=== PATIENT | male | born 1950 | race Caucasian/White ===

== ENCOUNTER 2017-01-29 16:03 | Emergency (ER) | payer OTHER ==
[2017-01-29 17:11] LABS: Hematocrit 43 % (42-52); Hemoglobin 14.1 g/dl (14.0-18.0); Mean Corpuscular HGB Conc 33 g/dl (31-36); Mean Corpuscular Hemoglobin 29 pg (27-31); Mean Corpuscular Volume 89 fL (80-94); Mean Platelet Volume 10 um3 (7.4-10.4); Red Blood Count 4.85 10^6/ul (4.0-5.4); Red Cell Distribution Width 16 % (10.5-15); White Blood Count 9.5 10^3/ul (3.5-10.8)
--- NOTE | 2017-01-29 17:18 | RAD ---
INDICATION: Chest pain COMPARISON: May 23, 2015 TECHNIQUE: An AP portable view obtained at 1700 hours is submitted. FINDINGS: Bones/Soft Tissues: There are no acute bony findings. There are chronic left rib deformities with pleural reactive change Cardiomediastinal: The cardiomediastinal silhouette is normal. Lungs: There are no acute infiltrates. Pleura: There are no pleural effusions. Other: None IMPRESSION: CHRONIC ABNORMALITIES LEFT HEMITHORAX. NO ACUTE FINDINGS.
[2017-01-29 17:25] LABS: Albumin 4.1 g/dL (3.2-5.2); BUN/Creatinine Ratio 10.3 (8-20); Calcium 8.9 mg/dL (8.6-10.3); EGFR African American 99.9 (>60); EGFR Non-African American 77.7 (>60); Globulin 3.1 g/dL (2-4); Potassium 3.6 mmol/L (3.5-5.0); Total Bilirubin 0.6 mg/dL (0.2-1.0); Total Protein 7.2 g/dL (6.4-8.9)
[2017-01-29 17:26] LABS: Troponin I 0.02 ng/mL (<0.04)
[2017-01-29 18:05] VITALS: BP 165/97
--- NOTE | 2017-02-01 12:55 | ED ---
I, Oh,Somedardo, scribed for Abdifatah Mao MD on 01/29/17 at 1701 . HPI Chest Pain - HPI Summary HPI Summary: This 66 y/o male presents to ED for intermittent, 3-day old left anterior chest tightness. Each episode last about "a couple of minutes". CP is worse since yesterday, and pt decided to visit ED when [facility]. Positive for elevated blood pressure, which is controlled with triamterene/ Hctz. 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 PMHx includes CAD s/p stent placement. [facility] - History of Current Complaint Chief Complaint: EDChestPainROMI Time Seen by Provider: 01/29/17 16:21 Hx Obtained From: Patient, Medical Records Onset/Duration: Started Days Ago, Atraumatic, Still Present Timing: Intermittent Pain Scale Used: 0-10 Numeric Chest Pain Location: Left Anterior Chest Pain Radiates: No Character: Sharp/Stabbing, Tightness Aggravating Factor(s): Nothing Alleviating Factor(s): NTG 123 Associated Signs and Symptoms: Positive: Chest Pain - Allergy/Home Medications Allergies/Adverse Reactions: Allergies Allergy/AdvReac Type Severity Reaction Status Date / Time No Known Allergies Allergy Verified 12/30/15 09:11 PMH/Surg Hx/FS Hx/Imm Hx Endocrine/Hematology History: Reports: Hx Diabetes Cardiovascular History: Reports: Hx Coronary Artery Disease, Hx Hypertension Psychiatric History: Reports: Hx Schizophrenia - Surgical History Surgery Procedure, Year, and Place: 2 cardiac stents, appy Infectious Disease History: No Infectious Disease History: Denies: Traveled Outside the [place] in Last 30 Days - Family History Known Family History: Negative: Cardiac Disease - Social History Alcohol Use: None Hx Substance Use: Yes Substance Use Type: Reports: Marijuana Substance Use Comment - Amount & Last Used: daily Hx Tobacco Use: No Smoking Status (MU): Never Smoked Tobacco Review of Systems Negative: Fever Positive: Chest Pain All Other Systems Reviewed And Are Negative: Yes Physical Exam Vital Signs On Initial Exam: Initial Vitals Temp Pulse Resp BP Pulse Ox 98.7 F 59 17 153/95 97 01/29/17 16:06 01/29/17 16:06 01/29/17 16:06 01/29/17 16:06 01/29/17 16:06 Diagnostics - Vital Signs Vital Signs Temp Pulse Resp BP Pulse Ox 01/29/17 16:06 98.7 F 59 17 153/95 97 - Laboratory Lab Results: Lab Results 01/29/17 01/29/17 01/29/17 Range/Units 16:40 16:40 16:40 WBC 9.5 (3.5-10.8) 10^3/ul RBC 4.85 (4.0-5.4) 10^6/ul Hgb 14.1 (14.0-18.0) g/dl Hct 43 (42-52) % MCV 89 (80-94) fL MCH 29 (27-31) pg MCHC 33 (31-36) g/dl RDW 16 H (10.5-15) % Plt Count 263 (150-450) 10^3/ul MPV 10 (7.4-10.4) um3 Neut % (Auto) 54.4 (38-83) % Lymph % (Auto) 31.3 (25-47) % [place] % (Auto) 10.2 H (1-9) % Eos % (Auto) 1.8 (0-6) % Baso % (Auto) 2.3 H (0-2) % Absolute Neuts (auto) 5.2 (1.5-7.7) 10^3/ul Absolute Lymphs (auto) 3.0 (1.0-4.8) 10^3/ul Absolute Monos (auto) 1.0 H (0-0.8) 10^3/ul Absolute Eos (auto) 0.2 (0-0.6) 10^3/ul Absolute Basos (auto) 0.2 (0-0.2) 10^3/ul Absolute Nucleated RBC 0.01 10^3/ul Nucleated RBC % 0.1 Sodium 138 (133-145) mmol/L Potassium 3.6 (3.5-5.0) mmol/L Chloride 105 (101-111) mmol/L Carbon Dioxide 25 (22-32) mmol/L Anion Gap 8 (2-11) mmol/L BUN 10 (6-24) mg/dL Creatinine 0.97 (0.67-1.17) mg/dL Est GFR ( Amer) 99.9 (>60) Est GFR (Non-Af Amer) 77.7 (>60) BUN/Creatinine Ratio 10.3 (8-20) Glucose 87 (70-100) mg/dL Lactic Acid 1.3 (0.5-2.0) mmol/L Calcium 8.9 (8.6-10.3) mg/dL Total Bilirubin 0.60 (0.2-1.0) mg/dL AST 24 (13-39) U/L ALT 31 (7-52) U/L Alkaline Phosphatase 58 (34-104) U/L Troponin I 0.02 (<0.04) ng/mL Total Protein 7.2 (6.4-8.9) g/dL Albumin 4.1 (3.2-5.2) g/dL Globulin 3.1 (2-4) g/dL Albumin/Globulin Ratio 1.3 (1-3) Result Diagrams: 01/29/17 16:40 01/29/17 16:40 Lab Statement: Any lab studies that have been ordered have been reviewed, and results considered in the medical decision making process. - EKG 1614 Cardiac Rate: Bradycardia EKG Rhythm: Sinus Bradycardia Ectopy: PVCs EKG Interpretation: Anteiror infarct, and PVCs. Unchanged from 07/06/2015 Chest Pain Course/Dx - Course Course Of Treatment: Mr. Samuels has known CAD and has been having multiple episodes of CP that respond to NTG. The hospitalists are admitting him to the hospital. - Diagnoses Provider Diagnoses: Unstable angina - Provider Notifications Discussed Care Of Patient With: Paty Alberto Time Discussed With Above Provider: 17:00 Instructed by Provider To: Admit As Inpatient Discharge - Discharge Plan Condition: Fair Disposition: AGAINST MEDICAL ADVICE Prescriptions: amLODIPine TAB* [Norvasc 5 mg TAB*] 5 mg PO DAILY #30 tab Referrals: Kaela Coffey [Primary Care Provider] - The documentation as recorded by the Daryn mejia Soohyun accurately reflects the service I personally performed and the decisions made by me, Abdifatah Mao MD.
== END 2017-01-29 18:07 | disposition left against medical advice (07) ==
LOC: ED 16:03
DX: I20.0 Unstable angina (principal); R07.9 Chest pain, unspecified
CPT/HCPCS: 36415; 71010; 80053; 83605; 84484; 85025; 93005; 99283

== ENCOUNTER 2017-04-02 16:39 | Emergency (ER) | payer OTHER ==
[2017-04-02 17:06] VITALS: BP 138/86
--- NOTE | 2017-04-02 17:40 | UC ---
Skin Complaint HPI - HPI Summary HPI Summary: 66 yo male was stung on right side of neck yesterday stung by a flying insect initially quite painful slightly itchy - History of Current Complaint Chief Complaint: UCSkin Time Seen by Provider: 04/02/17 17:19 Stated Complaint: BUG BITE Hx Obtained From: Patient Onset/Duration: Sudden Onset Skin Exposure Onset/Duration: Hours Ago Timing: Constant Onset Severity: Moderate Current Severity: Mild Pain Intensity: 2 Location: Other - right neck Character: Pruritus, Redness, Painful Aggravating Factor(s): Touch Alleviating Factor(s): Cold Associated Signs & Symptoms: Positive: Rash, Tenderness Related History: Insect Bite/Sting - Allergy/Home Medications Allergies/Adverse Reactions: Allergies Allergy/AdvReac Type Severity Reaction Status Date / Time No Known Allergies Allergy Verified 12/30/15 09:11 Home Medications: Home Medications Metformin ER (NF) 500 mg PO DAILY 04/02/17 [History Confirmed 04/02/17] Metoprolol & Hydrochlorothiazi [Metoprolol Succinate ER/H 25-12.5 mg] 1 tab PO DAILY 04/02/17 [History Confirmed 04/02/17] Review of Systems Constitutional: Negative Skin: Rash Eyes: Negative ENT: Negative Respiratory: Negative Cardiovascular: Negative Gastrointestinal: Negative Genitourinary: Negative Motor: Negative Neurovascular: Negative Musculoskeletal: Negative Neurological: Negative Psychological: Negative Is Patient Immunocompromised?: No All Other Systems Reviewed And Are Negative: Yes PMH/Surg Hx/FS Hx/Imm Hx Previously Healthy: Yes Endocrine History: Diabetes Cardiovascular History: Cardiac Disease, Hypertension - Surgical History Surgical History: Yes Surgery Procedure, Year, and Place: 2 cardiac stents, appy, spleen removed. - Family History Known Family History: Positive: Hypertension Negative: Cardiac Disease - Social History Alcohol Use: None Substance Use Type: Marijuana Substance Use Comment - Amount & Last Used: daily Smoking Status (MU): Never Smoked Tobacco - Immunization History Most Recent Influenza Vaccination: this season Most Recent Tetanus Shot: - Most Recent Pneumonia Vaccination: within 10 years Physical Exam Triage Information Reviewed: Yes Appearance: Well-Appearing Vital Signs: Initial Vital Signs Temp 97.5 F 04/02/17 16:59 Pulse 69 04/02/17 16:59 Resp 18 04/02/17 16:59 BP 138/86 04/02/17 16:59 Pulse Ox 98 04/02/17 16:59 Eyes: Positive: Conjunctiva Clear Neck: Positive: Supple, Nontender, No Lymphadenopathy Respiratory: Positive: Lungs clear, Normal breath sounds, No respiratory distress Cardiovascular: Positive: RRR, No Murmur Musculoskeletal: Positive: ROM Intact Neurological: Positive: Alert Psychological Exam: Normal Skin Exam: Other - sting site noted/no stinger/surrounding erthyema and redness Course/Dx - Diagnoses Provider Diagnoses: local reaction to insect sting Discharge - Discharge Plan Condition: Stable Disposition: HOME Patient Education Materials: Insect Bite or Sting (ED) Referrals: Kaela Coffey [Primary Care Provider] - Additional Instructions: cool compresses you can use your steroid cream
== END 2017-04-02 17:54 | disposition home or self-care (01) ==
LOC: UCEAST 16:39
DX: T63.481A Toxic effect of venom of other arthropod, accidental (unintentional), initial encounter (principal); Y92.9 Unspecified place or not applicable; F12.90 Cannabis use, unspecified, uncomplicated
CPT/HCPCS: 99211; G0463

== ENCOUNTER 2017-09-11 17:14 | Emergency (ER) | payer OTHER ==
[2017-09-11 17:25] VITALS: BP 139/87
--- NOTE | 2017-09-11 17:34 | UC ---
Minor Trauma HPI - HPI Summary HPI Summary: 66-year-old male presents with left rib pain after fall today. He states he slipped on ice and landed on his left side. He admits that immediately after he had left ankle knee and hip pain but that has since resolved. He states only pain that is left is left rib pain. He is able to ambulate without difficulty. He states the pain is worse when he takes a deep breath. He denies any abdominal pain or flank pain. He denies any hematuria. He hasnt taken anything for his pain. He states the pain is worse when he tries to move his left arm. He states the fall mechanical fall. he denies any previous chest pain or shortness of breath prior to the fall. He denies any head injury or LOC. He denies any neck pain or back pain. - History of Current Complaint Chief Complaint: UCGeneralIllness Stated Complaint: RIB INJURY Time Seen by Provider: 09/11/17 17:27 Pain Intensity: 7 - Allergies/Home Medications Allergies/Adverse Reactions: Allergies Allergy/AdvReac Type Severity Reaction Status Date / Time No Known Allergies Allergy Verified 09/11/17 17:25 Home Medications: Home Medications Pravastatin Sodium 40 mg PO DAILY 09/11/17 [History Confirmed 09/11/17] PMH/Surg Hx/FS Hx/Imm Hx Endocrine History: Other Other Endocrine History: no DM Cardiovascular History: Hypertension - Surgical History Surgical History: Yes Surgery Procedure, Year, and Place: 2 cardiac stents, appy, spleen removed. - Family History Known Family History: Positive: Hypertension Negative: Cardiac Disease - Social History Alcohol Use: None Substance Use Type: Marijuana Substance Use Comment - Amount & Last Used: daily Smoking Status (MU): Never Smoked Tobacco - Immunization History Most Recent Influenza Vaccination: this season Most Recent Tetanus Shot: - Most Recent Pneumonia Vaccination: within 10 years Review of Systems Constitutional: Negative Respiratory: Shortness Of Breath, Other - left rib pain Gastrointestinal: Negative All Other Systems Reviewed And Are Negative: Yes Physical Exam Triage Information Reviewed: Yes Appearance: Well-Appearing Vital Signs: Initial Vital Signs Temp 98.0 F 09/11/17 17:20 Pulse 60 09/11/17 17:20 Resp 18 09/11/17 17:20 BP 139/87 09/11/17 17:20 Pulse Ox 100 09/11/17 17:20 Vital Signs Reviewed: Yes Eyes: Positive: Conjunctiva Clear Respiratory: Positive: Other: - tenderness over ribs 5-8 on lateral left side with no ecchymosis or step off Cardiovascular: Positive: RRR Abdomen Description: Positive: Nontender, Soft. Negative: CVA Tenderness (L) Bowel Sounds: Positive: Present Musculoskeletal: Positive: Strength Intact - left hip, knee and ankle, Other: - good pulses Neurological Exam: Normal Psychological Exam: Normal Skin Exam: Normal Diagnostics - Radiology ribs Xray Interpretation: Positive (See Comments) - IMPRESSION: 1. MULTIPLE OLD LEFT RIB FRACTURES. 2. SLIGHTLY DISPLACED FRACTURE OF THE LEFT LATERAL SEVENTH RIB, AGE INDETERMINATE. Radiology Interpretation Completed By: Radiologist Minor Trauma Course/Dx - Course Course Of Treatment: 66-year-old male presents with left rib pain after fall today. He states he slipped on ice and landed on his left side. He admits that immediately after he had left ankle knee and hip pain but that has since resolved. He states only pain that is left is left rib pain. He is able to ambulate without difficulty. He states the pain is worse when he takes a deep breath. He denies any abdominal pain or flank pain. He denies any hematuria. He hasnt taken anything for his pain. He states the pain is worse when he tries to move his left arm. He states the fall mechanical fall. he denies any previous chest pain or shortness of breath prior to the fall. He denies any head injury or LOC. He denies any neck pain or back pain. On exam tenderness over ribs 5-8 on lateral left side. No step-off. Lungs clear to auscultation. Full range of motion and strength in lower extremity. Nontender abdomen. X- ray shows rib fracture age interdeterminate at 8 which is were pain. patient has tried tyenlol and ibuprofen without relief so will send script for percocet. will have follow up with primary about blood pressure as has diagnosis of HTN. medications reviewed. patient understand and agrees with plan. - Differential Dx/Diagnosis Differential Diagnosis/HQI/PQRI: Contusion(s), Fracture, Strain Provider Diagnoses: rib fracture, fall Discharge - Discharge Plan Condition: Good Disposition: HOME Prescriptions: oxyCODONE/Acetamin 5/325 MG* [Percocet 5/325 TAB*] 1 tab PO Q6H PRN #16 tab MDD 4 PRN Reason: Pain Patient Education Materials: Rib Fracture (ED) Referrals: Kaela Coffey [Primary Care Provider] - Additional Instructions: Take deep breath throughout the day Take Tylenol for pain every 6 hours, use narcotic for break through pain Place ice on area Follow up with primary care physician within 5 days Return to ED if develop new productive cough, fever, or any new or worsening symptoms
--- NOTE | 2017-09-11 18:11 | RAD ---
INDICATION: Left rib injury. COMPARISON: Comparison is made with a prior chest x-ray study from January 29, 2017. TECHNIQUE: 4 views of the left ribs and dual-energy PA views of the chest were obtained. FINDINGS: There are multiple old left rib fractures involving at least the third through eighth posterior ribs. In addition there is a slightly displaced fracture of the lateral seventh rib, age indeterminate. The heart is mildly enlarged. The lungs are clear. No pleural effusion or pneumothorax is seen. IMPRESSION: 1. MULTIPLE OLD LEFT RIB FRACTURES. 2. SLIGHTLY DISPLACED FRACTURE OF THE LEFT LATERAL SEVENTH RIB, AGE INDETERMINATE.
== END 2017-09-11 18:30 | disposition home or self-care (01) ==
LOC: UCEAST 17:14
DX: S22.32XA Fracture of one rib, left side, initial encounter for closed fracture (principal); W00.0XXA Fall on same level due to ice and snow, initial encounter; Y92.9 Unspecified place or not applicable
CPT/HCPCS: 99212; G0463

== ENCOUNTER 2017-09-14 20:20 | Emergency (ER) | payer OTHER ==
[2017-09-14 20:42] VITALS: BP 146/97
--- NOTE | 2017-09-14 20:48 | UC ---
Ear Complaint HPI - HPI Summary HPI Summary: Pt presents with left lower jaw pain and swelling and decreased hearing in his left ear. He tells me that this left ear decreased hearing has been going on for a couple of months and [facility]. He did have a fall about 3 days ago - said he was walking in between cars and slipped on the ice; fell and landed on his left side. Did not hit his head or have LOC. Regarding his left lower jaw swelling - started about 2 days ago and is mildly tender. He says he has a lot of false teeth, but his gums don't seem to hurt. Denies fever , chills, sore throat, headache, dizziness, cough, SOB, chest pain. - History of Current Complaint Chief Complaint: UCEar Stated Complaint: JAW/EAR PAIN Time Seen by Provider: 09/14/17 20:46 Hx Obtained From: Patient Onset/Duration: Gradual Onset Severity Initially: Mild Severity Currently: Mild Pain Intensity: 3 Pain Scale Used: 0-10 Numeric - Allergies/Home Medications Allergies/Adverse Reactions: Allergies Allergy/AdvReac Type Severity Reaction Status Date / Time No Known Allergies Allergy Verified 09/14/17 20:42 PMH/Surg Hx/FS Hx/Imm Hx Previously Healthy: Yes Endocrine History: Diabetes Cardiovascular History: Cardiac Disease, Hypertension - Surgical History Surgical History: Yes Surgery Procedure, Year, and Place: 3 cardiac stents, appy, spleen removed. - Family History Known Family History: Positive: Hypertension Negative: Cardiac Disease - Social History Occupation: Retired Alcohol Use: Rare Substance Use Type: Marijuana Substance Use Comment - Amount & Last Used: daily Smoking Status (MU): Former Smoker Length of Time of Smoking/Using Tobacco: 40 years When Did the Patient Quit Smoking/Using Tobacco: 2007 - Immunization History Most Recent Influenza Vaccination: this season Most Recent Tetanus Shot: - Most Recent Pneumonia Vaccination: within 10 years Review of Systems Constitutional: Negative Skin: Negative Eyes: Negative ENT: Dental Pain Respiratory: Negative Cardiovascular: Negative Gastrointestinal: Negative Neurological: Negative Psychological: Negative All Other Systems Reviewed And Are Negative: Yes Physical Exam Triage Information Reviewed: Yes Appearance: Well-Appearing, No Pain Distress, Well-Nourished Vital Signs: Initial Vital Signs Temp 97.8 F 09/14/17 20:36 Pulse 82 09/14/17 20:36 Resp 20 03/17/18 20:36 BP 146/97 09/14/17 20:36 Pulse Ox 98 09/14/17 20:36 Vital Signs Reviewed: Yes Eyes: Positive: Conjunctiva Clear, Other: - EOMI. PERRLA ENT: Positive: Hearing grossly normal, Pharynx normal, TMs normal, Hoarse voice - baseline, Uvula midline. Negative: Pharyngeal erythema, Nasal congestion, Nasal drainage, TM bulging, TM dull, TM red, Tonsillar swelling, Tonsillar exudate, Sinus tenderness Dental: Positive: Cellulitis @ - Left lower gum, Other: - Superficial left manidble mild edema and tenderness. No erythema or ecchymosis.. Negative: Percussion Tenderness @, Dental Fracture @, Abscess @, Cervical Lymphadenopathy , Bleeding Neck: Positive: Supple, Nontender, No Lymphadenopathy Respiratory: Positive: Lungs clear, Normal breath sounds, No respiratory distress, No accessory muscle use Cardiovascular: Positive: Pulses Normal, Brisk Capillary Refill Neurological: Positive: Alert, Other: - AAOx3. CN II-XII grossly intact. No facial drooping. Normal speech pattern Psychological: Positive: Age Appropriate Behavior Skin: Negative: rashes, significant lesion(s) Ear Complaint Course/Dx - Course Course Of Treatment: Given his diabetes and cardiac history, I will cover him with clindamycin and [facility]. I suggested he see ENT regarding his left ear decreased hearing, but he prefers to see the [facility] - Differential Dx/Diagnosis Provider Diagnoses: Left jaw pain and swelling Discharge - Discharge Plan Condition: Stable Disposition: HOME Prescriptions: Clindamycin HCl 300 mg PO TID #21 capsule Patient Education Materials: Dental Abscess (ED) Referrals: Kaela Coffey [Primary Care Provider] - Additional Instructions: If you develop a fever, shortness of breath, chest pain, new or worsening symptoms - please call your PCP or go to the ED. Your blood pressure was high at todays visit. Please see your primary provider within 4 weeks for recheck and re-evaluation. 1) [facility] and schedule a follow up appointment
[2017-09-14] MEDS ORDERED: Clindamycin CAP* 150 MG PO ONE (20:57)
== END 2017-09-14 21:06 | disposition home or self-care (01) ==
LOC: UCEAST 20:20
DX: R68.84 Jaw pain (principal); R22.0 Localized swelling, mass and lump, head; F17.200 Nicotine dependence, unspecified, uncomplicated
CPT/HCPCS: 99212; A9270-GY; G0463

== ENCOUNTER 2018-10-11 07:14 | Emergency (ER) | payer OTHER ==
[2018-10-11 07:37] VITALS: BP 132/95
--- NOTE | 2018-10-11 08:19 | UC ---
Throat Pain/Nasal Dionicio HPI - HPI Summary HPI Summary: 67-year-old male comes in with a chief complaint of head congestion and sinus congestion and feeling hot. He has had upper respiratory tract infection symptoms for about 4 days. He states he knows somebody who had the same symptoms and the feels like he got it from them. This morning his symptoms reminded him of when he had a heart attack. He has had chest pain on off on the left side reports that he has almost all the time. When he was having his symptoms of feeling hot in his head and neck he took some nitroglycerin and the symptoms improved. He is producing sputum and rhinorrhea. Denies any calf pain or edema. - History of Current Complaint Chief Complaint: UCGeneralIllness Stated Complaint: SORE THROAT CHILLS HEADACHE Time Seen by Provider: 10/11/18 07:38 Pain Intensity: 2 - Allergies/Home Medications Allergies/Adverse Reactions: Allergies Allergy/AdvReac Type Severity Reaction Status Date / Time No Known Allergies Allergy Verified 09/14/17 20:42 Home Medications: Home Medications Lisinopril 5 mg PO DAILY 10/11/18 [History Confirmed 10/11/18] PMH/Surg Hx/FS Hx/Imm Hx Previously Healthy: No - [place] Cardiovascular History: Hypertension, Myocardial Infarction Respiratory History: COPD - Surgical History Surgical History: Yes Surgery Procedure, Year, and Place: 3 cardiac stents, appy, spleen removed. - Family History Known Family History: Positive: Hypertension Negative: Cardiac Disease - Social History Alcohol Use: None Substance Use Type: Marijuana Substance Use Comment - Amount & Last Used: daily Smoking Status (MU): Former Smoker Length of Time of Smoking/Using Tobacco: 40 years When Did the Patient Quit Smoking/Using Tobacco: 2007 - Immunization History Most Recent Influenza Vaccination: this season Most Recent Tetanus Shot: - Most Recent Pneumonia Vaccination: within 10 years Review of Systems All Other Systems Reviewed And Are Negative: Yes Constitutional: Positive: Negative Skin: Positive: Negative Eyes: Positive: Negative ENT: Positive: Sore Throat, Nasal Discharge, Sinus Congestion, Sinus Pain/ Tenderness Respiratory: Positive: Other - SEE HPI Cardiovascular: Positive: Chest Pain Gastrointestinal: Positive: Negative Motor: Positive: Negative Neurovascular: Positive: Negative Musculoskeletal: Positive: Negative. Negative: Calf Tenderness Neurological: Positive: Headache Psychological: Positive: Negative Is Patient Immunocompromised?: No Physical Exam Triage Information Reviewed: Yes Appearance: No Pain Distress, Well-Nourished, Ill-Appearing - MILD Vital Signs: Initial Vital Signs Temp 98.9 F 10/11/18 07:24 Pulse 87 10/11/18 07:24 Resp 18 10/11/18 07:24 BP 132/95 10/11/18 07:24 Pulse Ox 96 10/11/18 07:24 Vital Signs Reviewed: Yes Eye Exam: Normal Eyes: Positive: Conjunctiva Clear ENT: Positive: Pharyngeal erythema, Nasal congestion, Nasal drainage, TMs normal Neck: Positive: Supple Respiratory: Positive: Lungs clear, Normal breath sounds, No respiratory distress Cardiovascular: Positive: RRR Musculoskeletal: Positive: Strength Intact, ROM Intact, No Edema Neurological: Positive: Alert, Muscle Tone Normal Psychological Exam: Normal Psychological: Positive: Age Appropriate Behavior Skin Exam: Normal Throat Pain/Nasal Course/Dx - Course Course Of Treatment: Patient's runny nose and nasal congestion symptoms are consistent with a sinus infection. Patient reports that this morning his head felt hot and inspect felt hot which remind him of a heart attack. At this time I do not see any acute ischemic changes on his EKG. I let the patient know he needs to go the emergency department for further evaluation of his chest pain and symptoms. Patient declined going by ambulance. Patient declined going by POV. Patient reported that [facility]. We discussed his symptoms more in the plan at this time is to treat him for the sinus infection and I encouraged him to go to the emergency department now. Patient reported his he had any worsening of symptoms or anymore concerns he would go to the emergency department. - Differential Dx/Diagnosis Provider Diagnosis: Sinusitis, Chest pain Discharge - Sign-Out/Discharge Documenting (check all that apply): Patient Departure All imaging exams completed and their final reports reviewed: No Studies - Discharge Plan Condition: Stable Disposition: HOME-RECOMMEND TO ED Prescriptions: Amoxicillin PO (*) [Amoxicillin 500 MG CAP*] 500 mg PO TID #30 cap Patient Education Materials: Chest Pain (ED), Sinusitis (ED) Referrals: Kaela Coffey [Primary Care Provider] - Additional Instructions: GO TO THE EMERGENCY DEPARTMENT FOR FURTHER EVALUATION OF YOUR CHEST PAIN. FOLLOW UP WITH YOUR PRIMARY DOCTOR. IF YOU CHOOSE TO NOT GO TO THE EMERGENCY DEPARTMENT NOW, GO THERE FOR WORSENING OF YOUR CONDITION; CHEST PAIN, SHORTNESS OF BREATH, FEVER, YOU FEEL ILL OR QUESTIONS OR CONCERNS. - Billing Disposition and Condition Condition: STABLE Disposition: Home-Recommend to ED
== END 2018-10-11 08:31 | disposition home health service (06) ==
LOC: UCEAST 07:14
DX: J32.9 Chronic sinusitis, unspecified (principal); R07.89 Other chest pain; I25.2 Old myocardial infarction; I10 Essential (primary) hypertension; J44.9 Chronic obstructive pulmonary disease, unspecified; Z95.5 Presence of coronary angioplasty implant and graft; Z87.891 Personal history of nicotine dependence
CPT/HCPCS: 93005; 99212; G0463

== ENCOUNTER 2018-10-29 11:36 | Emergency (ER) | payer OTHER ==
[2018-10-29 12:33] LABS: ABS Basophils 0.1 10^3/ul (0-0.2); ABS Eosinophils 0.3 10^3/ul (0-0.6); ABS Lymphocytes 2.7 10^3/ul (1.0-4.8); ABS Neutrophils 4.5 10^3/ul (1.5-7.7); ABS Nucleated RBC 0 10^3/ul; Eosinophil % 3.1 %; Hematocrit 44 % (42-52); Hemoglobin 14.4 g/dL (14.0-18.0); Lymphocyte % 31.7 %; Mean Corpuscular HGB Conc 33 g/dL (31-36); Mean Corpuscular Hemoglobin 29 pg (27-31); Mean Corpuscular Volume 88 fL (80-94); Mean Platelet Volume 9.3 fL (7.4-10.4); Nucleated Red Blood Cells % 0; Platelet Count 334 10^3/uL (150-450); Red Blood Count 4.93 10^6 /uL (4.18-5.48); Red Cell Distribution Width 15 % (10.5-15); White Blood Count 8.4 10^3/uL (3.5-10.8)
[2018-10-29 12:51] LABS: Albumin 4.4 g/dL (3.2-5.2); Albumin/Globulin Ratio 1.5 (1-3); BUN/Creatinine Ratio 13.5 (8-20); Calcium 9.2 mg/dL (8.6-10.3); EGFR African American 103.5 (>60); EGFR Non-African American 85.5 (>60); Magnesium 2.1 mg/dL (1.9-2.7); Total Bilirubin 0.8 mg/dL (0.2-1.0); Total Protein 7.4 g/dL (6.4-8.9)
[2018-10-29 12:52] LABS: Troponin I 0.01 ng/mL (<0.04)
--- NOTE | 2018-10-29 12:57 | ED ---
HPI Chest Pain - HPI Summary HPI Summary: Pt is a 67 y/o M presenting to the ED with a chief complaint of L-sided chest pain onset this morning around 0800. It is located on the L anterior part of his chest, and comes intermittently for brief periods of time. He reports associated nausea, and had a subjective fever. He denies vomiting, SOB, edema, or cough. He takes a baby aspirin every day, and reports that he sometimes gets this pain when he eats. - History of Current Complaint Chief Complaint: EDChestPainROMI Time Seen by Provider: 10/29/18 11:55 Hx Obtained From: Patient Onset/Duration: Started Hours Ago, Still Present Timing: Intermittent, Lasting Minutes Initial Severity: Moderate Current Severity: None Pain Intensity: 0 Pain Scale Used: 0-10 Numeric Chest Pain Location: Left Anterior Chest Pain Radiates: No Aggravating Factor(s): Nothing Alleviating Factor(s): Nothing Associated Signs and Symptoms: Positive: Chest Pain, Fever. Negative: Shortness of Breath, Cough, Vomiting, Edema - Allergy/Home Medications Allergies/Adverse Reactions: Allergies Allergy/AdvReac Type Severity Reaction Status Date / Time No Known Allergies Allergy Verified 10/29/18 11:47 Home Medications: Home Medications Albuterol HFA INHALER* [Ventolin HFA Inhaler*] 2 puff INH Q4H PRN 10/29/18 [ History Confirmed 10/29/18] Aspirin EC TAB* [Ecotrin EC Low Dose 81 MG*] 81 mg PO DAILY 10/29/18 [History Confirmed 10/29/18] Calcium Carbonate/Vitamin D3 [Calcium 600 + Vit D Tablet] 1 tab PO DAILY [History Confirmed 10/29/18] Cholecalciferol TAB* [Vitamin D TAB*] 2,000 units PO DAILY 10/29/18 [History Confirmed 10/29/18] Fluocinolone Acetonide [[place]oot[place]/Fs Body] 0.01 % TOPICAL DAILY PRN [History Confirmed 10/29/18] Fluocinonide 0.05% CM (NF) [Lidex 0.05% CREAM (NF)] 1 applic TOPICAL DAILY PRN 10/29/18 [History Confirmed 10/29/18] Lisinopril TAB* [Prinivil TAB*] 5 mg PO DAILY 10/29/18 [History Confirmed ] Metoprolol Tartrate TAB* [Lopressor TAB*] 12.5 mg PO BID 10/29/18 [History Confirmed 10/29/18] Nitroglycerin TAB 0.4 MG* 0.4 mg SL Q5M PRN 10/29/18 [History Confirmed 10/29/18 ] Omeprazole CAP (NF) [Prilosec CAP* 20 MG] 20 mg PO DAILY 10/29/18 [History Confirmed 10/29/18] Pravastatin (NF) [Pravachol (NF)] 40 mg PO BEDTIME 10/29/18 [History Confirmed 10/29/18] amLODIPine TAB* [Norvasc 5 mg TAB*] 10 mg PO DAILY 10/29/18 [History Confirmed 10/29/18] metFORMIN* [Glucophage 500 MG TAB *] 500 mg PO DAILY WITH MEAL 10/29/18 [ History Confirmed 10/29/18] PMH/Surg Hx/FS Hx/Imm Hx Previously Healthy: Yes Endocrine/Hematology History: Reports: Hx Diabetes Denies: Hx Thyroid Disease Cardiovascular History: Reports: Hx Coronary Artery Disease, Hx Hypertension Respiratory History: Denies: Hx Asthma, Hx Chronic Obstructive Pulmonary Disease (COPD) GI History: Denies: Hx Ulcer Psychiatric History: Reports: Hx Schizophrenia - Surgical History Surgery Procedure, Year, and Place: 3 cardiac stents, appy, spleen removed. Infectious Disease History: No Infectious Disease History: Denies: Hx Clostridium Difficile, Hx Hepatitis, Hx Human Immunodeficiency Virus (HIV), Hx of Known/Suspected MRSA, Hx Shingles, Hx Tuberculosis, Hx Known/ Suspected VRE, Hx Known/Suspected VRSA, History Other Infectious Disease, Traveled Outside the [place] in Last 30 Days - Family History Known Family History: Positive: Hypertension Negative: Cardiac Disease - Social History Alcohol Use: None Hx Substance Use: Yes Substance Use Type: Reports: Marijuana Substance Use Comment - Amount & Last Used: daily Hx Tobacco Use: No Smoking Status (MU): Former Smoker Length of Time of Smoking/Using Tobacco: 40 years Review of Systems Positive: Fever Positive: Chest Pain Negative: Shortness Of Breath, Cough Positive: Nausea. Negative: Vomiting Negative: Edema All Other Systems Reviewed And Are Negative: Yes Physical Exam - Summary Physical Exam Summary: Constitutional: Well-developed, Well-nourished, Alert. (-) Distressed Skin: Warm, Dry HENT: Normocephalic; Atraumatic Eyes: Conjunctiva normal Neck: Musculoskeletal ROM normal neck. (-) JVD, (-) Stridor, (-) Tracheal deviation Cardio: Rhythm regular, rate normal, Heart sounds normal; Intact distal pulses; The pedal pulses are 2+ and symmetric. Radial pulses are 2+ and symmetric. (-) Murmur Pulmonary/Chest wall: Effort normal. (-) Respiratory distress, (-) Wheezes, (-) Rales Abd: Soft, (-) tenderness, (-) Distension, (-) Guarding, (-) Rebound Musculoskeletal: (-) Edema Lymph: (-) Cervical adenopathy Neuro: Alert, Oriented x3 Psych: Mood and affect Normal Triage Information Reviewed: Yes Vital Signs On Initial Exam: Initial Vitals Temp Pulse Resp BP Pulse Ox 96.4 F 63 18 142/96 98 10/29/18 11:45 10/29/18 11:45 10/29/18 11:45 10/29/18 11:45 10/29/18 11:45 Vital Signs Reviewed: Yes Diagnostics - Vital Signs Vital Signs Temp Pulse Resp BP Pulse Ox 10/29/18 12:27 56 16 145/93 95 10/29/18 12:10 96 10/29/18 12:00 61 17 97 10/29/18 11:57 58 130/88 94 10/29/18 11:45 96.4 F 63 18 142/96 98 - Laboratory Lab Results: Lab Results 10/29/18 10/29/18 10/29/18 Range/Units 12:23 12:23 12:23 WBC 8.4 (3.5-10.8) 10^3/uL RBC 4.93 (4.18-5.48) 10^6 /uL Hgb 14.4 (14.0-18.0) g/dL Hct 44 (42-52) % MCV 88 (80-94) fL MCH 29 (27-31) pg MCHC 33 (31-36) g/dL RDW 15 (10.5-15) % Plt Count 334 (150-450) 10^3/uL MPV 9.3 (7.4-10.4) fL Neut % (Auto) 53.1 % Lymph % (Auto) 31.7 % [place] % (Auto) 11.4 % Eos % (Auto) 3.1 % Baso % (Auto) 0.7 % Absolute Neuts (auto) 4.5 (1.5-7.7) 10^3/ul Absolute Lymphs (auto) 2.7 (1.0-4.8) 10^3/ul Absolute Monos (auto) 1.0 H (0-0.8) 10^3/ul Absolute Eos (auto) 0.3 (0-0.6) 10^3/ul Absolute Basos (auto) 0.1 (0-0.2) 10^3/ul Absolute Nucleated RBC 0 10^3/ul Nucleated RBC % 0 Sodium 138 (135-145) mmol/L Potassium 4.0 (3.5-5.0) mmol/L Chloride 105 (101-111) mmol/L Carbon Dioxide 25 (22-32) mmol/L Anion Gap 8 (2-11) mmol/L BUN 12 (6-24) mg/dL Creatinine 0.89 (0.67-1.17) mg/dL Est GFR ( Amer) 103.5 (>60) Est GFR (Non-Af Amer) 85.5 (>60) BUN/Creatinine Ratio 13.5 (8-20) Glucose 117 H (70-100) mg/dL Lactic Acid 1.6 (0.5-2.0) mmol/L Calcium 9.2 (8.6-10.3) mg/dL Magnesium 2.1 (1.9-2.7) mg/dL Total Bilirubin 0.80 (0.2-1.0) mg/dL AST 36 (13-39) U/L ALT 54 H (7-52) U/L Alkaline Phosphatase 71 (34-104) U/L Troponin I 0.01 (<0.04) ng/mL Total Protein 7.4 (6.4-8.9) g/dL Albumin 4.4 (3.2-5.2) g/dL Globulin 3.0 (2-4) g/dL Albumin/Globulin Ratio 1.5 (1-3) Result Diagrams: 10/29/18 12:23 10/29/18 12:23 Lab Statement: Any lab studies that have been ordered have been reviewed, and results considered in the medical decision making process. - Radiology CXR Radiology Interpretation Completed By: Radiologist Summary of Radiographic Findings: No evidence for acute intrathoracic disease. ED physician has reviewed this report. - EKG 1150 Cardiac Rate: NL EKG Rhythm: Sinus Rhythm ST Segment: Normal Ectopy: None EKG Comparison: No Significant Change Summary of EKG Findings: An EKG at 1150 shows NSR at 62bpm with nml DC interval , incomplete LBBB, nml QTc, nml ST waves, and nml T waves. This is an overall nonspecific EKG, unchanged from 10/11/17. Chest Pain Course/Dx - Course Course Of Treatment: Pt is a 67 y/o M presenting to the ED with a chief complaint of L-sided chest pain onset this morning around 0800. It is located on the L anterior part of his chest, and comes intermittently for brief periods of time. He reports associated nausea, and had a subjective fever. He denies vomiting, SOB, edema, or cough. CXR shows no evidence for acute intrathoracic disease. Initial troponin is 0.01. An EKG at 1150 shows NSR at 62bpm with nml DC interval, incomplete LBBB, nml QTc, nml ST waves, and nml T waves. This is an overall nonspecific EKG, unchanged from 10/11/17. Second troponin is 0.01. Third troponin is 0.01. The pt will be sent home with a dx of chest pain. He is stable and agreeable with this plan. - Diagnoses Provider Diagnoses: Chest pain Discharge - Sign-Out/Discharge Documenting (check all that apply): Patient Departure Patient Received Moderate/Deep Sedation with Procedure: No - Discharge Plan Condition: Stable Disposition: HOME Patient Education Materials: Chest Pain (ED) Print Language: ARMENIAN Referrals: Kaela Coffey [Primary Care Provider] - - Billing Disposition and Condition Condition: STABLE Disposition: Home - Attestation Statements Document Initiated by Casandraibmartin: Yes Documenting Scribe: Ana Nelson Provider For Whom Anand is Documenting (Include Credential): Mimi Arrieta MD. Scribe Attestation: Ana Thomas scribed for Mimi Godinez MD. on 10/29/18 at 2240. Scribe Documentation Reviewed: Yes Provider Attestation: The documentation as recorded by the scribe, Ana Nelson accurately reflects the service I personally performed and the decisions made by me, Mimi Godinez MD. Status of Scribe Document: Viewed
[2018-10-29 19:17] VITALS: BP 139/79
== END 2018-10-29 19:16 | disposition home or self-care (01) ==
LOC: ED 11:36
DX: R07.9 Chest pain, unspecified (principal); R94.31 Abnormal electrocardiogram [ECG] [EKG]; I10 Essential (primary) hypertension; I25.10 Atherosclerotic heart disease of native coronary artery without angina pectoris; F20.9 Schizophrenia, unspecified; E11.9 Type 2 diabetes mellitus without complications; Z79.51 Long term (current) use of inhaled steroids; Z79.899 Other long term (current) drug therapy; Z79.84 Long term (current) use of oral hypoglycemic drugs; Z79.82 Long term (current) use of aspirin; Z95.5 Presence of coronary angioplasty implant and graft; Z87.891 Personal history of nicotine dependence
CPT/HCPCS: 36415; 71045; 80053; 83605; 83735; 84484; 85025; 93005; 99283

== ENCOUNTER 2019-07-29 16:10 | Emergency (ER) | payer OTHER ==
--- NOTE | 2019-07-29 16:56 | ED ---
Head Injury - HPI Summary HPI Summary: The patient is a 68 y/o male presenting to [facility] with a chief complaint of head injury this afternoon. He reports he hit his head on the roof of a van he was helping his friend load. He endorses headache, nausea, tingling in the hands, left shoulder pain, and a superficial abrasion to the head. He denies any LOC, dizziness, photophobia, neck pain, or vomiting. Symptoms are currently rated 3/ 10 in severity. He is not on anticoagulants. He does not have a history of neck problems. PMHx: DM, CAD, cardiac stents, HTN, HLD, schizophrenia. Nonsmoker, no EtOH, no substance use. Medications reviewed. Allergies noted. - History Of Current Complaint Chief Complaint: EDHeadInjury Stated Complaint: DIZZINESS PER EMS Time Seen by Provider: 07/29/19 16:29 Hx Obtained From: Patient Mechanism Of Injury: Other - hit head on roof of car Onset/Duration: Started Minutes Ago, Still Present Severity Currently: Mild Severity Initially: Mild Pain Intensity: 3 Pain Scale Used: 0-10 Numeric Character: Dull Aggravating Factor(s): Other: - nothing Alleviating Factor(s): Other: - nothing Associated Signs And Symptoms: Nausea, Headache, Other: - left shoulder pain, tingling in hands, superficial abrasion to the head; Negative: neck pain, vomiting, LOC, dizziness, photophobia - Allergies/Home Medications Allergies/Adverse Reactions: Allergies Allergy/AdvReac Type Severity Reaction Status Date / Time No Known Allergies Allergy Verified 10/29/18 11:47 PMH/Surg Hx/FS Hx/Imm Hx Endocrine/Hematology History: Reports: Hx Diabetes Denies: Hx Thyroid Disease Cardiovascular History: Reports: Hx Coronary Artery Disease, Hx Hypercholesterolemia, Hx Hypertension Respiratory History: Denies: Hx Asthma, Hx Chronic Obstructive Pulmonary Disease (COPD) GI History: Denies: Hx Ulcer Psychiatric History: Reports: Hx Schizophrenia - Surgical History Surgical History: Yes Surgery Procedure, Year, and Place: 3 cardiac stents, appy, spleen removed. Infectious Disease History: No Infectious Disease History: Denies: Hx Clostridium Difficile, Hx Hepatitis, Hx Human Immunodeficiency Virus (HIV), Hx of Known/Suspected MRSA, Hx Shingles, Hx Tuberculosis, Hx Known/ Suspected VRE, Hx Known/Suspected VRSA, History Other Infectious Disease, Traveled Outside the [place] in Last 30 Days - Family History Known Family History: Positive: Hypertension Negative: Cardiac Disease - Social History Alcohol Use: None Hx Substance Use: Yes Substance Use Type: Reports: Marijuana Substance Use Comment - Amount & Last Used: daily Hx Tobacco Use: No Smoking Status (MU): Former Smoker Length of Time of Smoking/Using Tobacco: 40 years Review of Systems Negative: Photophobia Positive: Nausea. Negative: Vomiting Positive: Myalgia - left shoulder. Negative: Other - neck pain Positive: Other - superficial abrasion to head Neurological: Other - Negative: LOC, dizziness Positive: Headache, Paresthesia - hands All Other Systems Reviewed And Are Negative: Yes Physical Exam - Summary Physical Exam Summary: Constitutional: Well-developed, Well-nourished, Alert. (-) Distressed Skin: Warm, Dry HENT: Normocephalic; Abrasion to top of head Eyes: Conjunctiva normal Neck: Musculoskeletal ROM normal neck. (-) JVD, (-) Stridor, (-) Nuchal rigidity , no cervical spine tenderness. Cardio: Rhythm regular, rate normal, Heart sounds normal; Intact distal pulses; Radial pulses are 2+ and symmetric. (-) Murmur Pulmonary/Chest wall: Effort normal. (-) Respiratory distress, (-) Wheezes, (-) Rales Abd: Soft, (-) tenderness, (-) Distension, (-) Guarding, (-) Rebound Musculoskeletal: (-) Edema Lymph: (-) Cervical adenopathy Neuro: Alert, Oriented x3, GCS 15. Strength 5/5 UE, SILT. Psych: Mood and affect Normal Triage Information Reviewed: Yes Vital Signs On Initial Exam: Initial Vitals Temp Pulse Resp BP Pulse Ox 96.9 F 83 18 141/100 94 07/29/19 16:22 07/29/19 16:22 07/29/19 16:22 07/29/19 16:22 07/29/19 16:22 Vital Signs Reviewed: Yes - Gutierrez Coma Scale Best Eye Response: 4 - Spontaneous Best Motor Response: 6 - Obeys Commands Best Verbal Response: 5 - Oriented Coma Scale Total: 15 Procedures - Sedation Patient Received Moderate/Deep Sedation with Procedure: No Diagnostics - Vital Signs Vital Signs Temp Pulse Resp BP Pulse Ox 07/29/19 16:22 96.9 F 83 18 141/100 94 - Laboratory Lab Statement: Any lab studies that have been ordered have been reviewed, and results considered in the medical decision making process. - CT Brain CT CT Interpretation Completed By: Radiologist Summary of CT Findings: Impression: 1. No CT evidence for traumatic brain injury or acute intracranial process. 2. 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 3. Mild involutional change. ED physician has reviewed this report. C-Spine CT CT Interpretation Completed By: Radiologist Summary of CT Findings: Impression: 1. No CT evidence for traumatic cervical spine injury. 2. Nonemergent follow-up thyroid ultrasound suggested for further characterization of LEFT thyroid nodule. No previous thyroid imaging evident on the [facility] [place] [facility] PACS. ED physician has reviewed this report. Re-Evaluation - Re-Evaluation First Eval Re-Evaluation Time: 17:55 Comment: D/w results with C-spine CT positive for thyroid nodule but o/w benign results, plan for d/c Head Injury Course/Dx Course Of Treatment: 68 y/o male p/w head injury. PE: normal neuro exam, full strength in UE. No cspine TTP. CT brain obtained gived head trauma on exam, negative for acute pathology. CT cspine obtained given reported paresthesias now resolved. C-spine negative. Patient ambulated in the ED - Diagnoses Provider Diagnoses: Closed head injury, Thyroid nodule Discharge ED - Sign-Out/Discharge Documenting (check all that apply): Patient Departure - Patient will be discharged home. - Discharge Plan Condition: Stable Disposition: HOME Patient Education Materials: Concussion (ED) Referrals: Kaela Coffey [Primary Care Provider] - Additional Instructions: You were seen in the emergency department to hitting her head. Your head CT and C-spine CT did not show any acute antibodies. Your CT did show a nodule on your thyroid which he can get an ultrasound done outpatient with your primary care doctor. Please follow up with your primary care doctor in next 2-3 days and return to emergency department for worsening headaches, weakness or numbness in the arms, or concerning symptoms. It was a pleasure taking care of you today. - Billing Disposition and Condition Condition: STABLE Disposition: Home - Attestation Statements Document Initiated by Scribe: Yes Documenting Scribe: Vickie Yañez Provider For Whom Anand is Documenting (Include Credential): MD Roland Hassane Attestation: I, Vickie Yañez, scribed for Dr. Gil Calzada MD on 07/29/19 at 1820. Scribe Documentation Reviewed: Yes Provider Attestation: The documentation as recorded by the scribe, Vickie Yañez accurately reflects the service I personally performed and the decisions made by me, Dr. Gil Calzada MD Status of Scribe Document: Viewed
[2019-07-29 18:24] VITALS: BP 133/110
== END 2019-07-29 18:12 | disposition home or self-care (01) ==
LOC: ED 16:10
DX: S09.90XA Unspecified injury of head, initial encounter (principal); E04.1 Nontoxic single thyroid nodule; V48.4XXA Person boarding or alighting a car injured in noncollision transport accident, initial encounter; Y92.9 Unspecified place or not applicable; E11.9 Type 2 diabetes mellitus without complications; I25.10 Atherosclerotic heart disease of native coronary artery without angina pectoris; I10 Essential (primary) hypertension; E78.5 Hyperlipidemia, unspecified; F20.9 Schizophrenia, unspecified; Z95.5 Presence of coronary angioplasty implant and graft; Z90.81 Acquired absence of spleen; Z87.891 Personal history of nicotine dependence
CPT/HCPCS: 70450; 72125; 99281